=== PATIENT | male | born 1955 | race Caucasian/White ===

== ENCOUNTER 2016-07-05 09:33 | Day surgery (SDC) | payer MEDICARE ==
--- NOTE | 2016-05-09 09:01 | NUR ---
NN PATIENTS REPORTS THEY WERE EVACUATED FROM [facility] YESTERDAY DUE TO THE FIRE SITUATION AND WAS NOT ABLE TO MAKE THE PREOP APPOINTMENT WITH DR DAINA MELÉNDEZ, SHE STATED THEY CALLED DR TRAVIS PUENTES TO NOTIFY THEY WERE NOT ABLE TO MAKE IT, I THEN CALLED THE OFFICE TO NOTIFY JENNIFER, SHE STATED SHE THOUGHT IT WAS JUST FOR LABS, I SAID IF THE PATIENT HAS ANY CARDIAC OR OTHER MEDICAL ISSUES THE ANESTHESIA WILL WANT CLEARANCE.
--- NOTE | 2016-05-09 09:08 | NUR ---
NN NURSES NOTE, NO CHART AVAILABLE AT THIS TIME YET FROM DR RICO.
[2016-07-05] VITALS (7 sets, daily range): BP systolic 119–143; BP diastolic 58–65; PULSE 78–94; RESP 17–22; TEMP 97.2; O2SAT 97–99; Ht 157.5 cm; Wt 60.5 kg
[~2016-07-05] VITALS: Ht 157.5 cm; Wt 60.5 kg
[~2016-07-05 09:33] MED LIST: BACL10TA PO; BUDE0.5A6 AEROSOL; CETI-269 PO; CHOL100018 PO; DOCU60SY6 PO; GUAI200T5 PO; LIDOCAINE 1% (10mg/ml) 2ml SDV INJ ONE; LISI-621 PO; MULT-933 PO; NITR100C PO; RANI300C PO; SERT100T12 PO; SIMV20TA6 PO; TERA2CAP4 PO; TRAZ-170 PO
--- NOTE | 2016-07-05 10:23 | ANESPREOP ---
Anesthesia Record Date and Time DATE: 07/05/16 TIME: 10:18 Proposed Surgical Procedure CYSTOSCOPY SUPRAPUBIC TUBE PLACEMENT NPO since: 1999 Allergies: Coded Allergies: No Known Allergies (Unverified , 07/05/16) Ht/Wt/BMI Height: ' " Weight: kg BMI: kg/m2 Medications Baclofen (Baclofen) 10 Mg Tablet, 1 TAB PO DAILY, (Reported) Budesonide (Budesonide) 0.5 Mg/2 Ml Ampul.neb, 1 VIAL AEROSOL DAILY, (Reported) Cetirizine HCl (Cetirizine HCl) 10 Mg Tablet, 1 TAB PO DAILY, (Reported) Cholecalciferol (Vitamin D3) 1,000 Unit Tablet, 1 TAB PO DAILY, (Reported) Docusate Sodium (Docusate Sodium) 60 Mg/15 Ml Syrup, 15 ML PO for STOOL SOFTENING, (Reported) Guaifenesin (Guaifenesin) 200 Mg Tablet, 1 TAB PO DAILY, (Reported) Lisinopril (Lisinopril) 20 Mg Tablet, 20 MG PO DAILY, (Reported) Multivitamin (Multi-Day Vitamins) 1 Each Tablet, 1 TAB PO DAILY, (Reported) Nitrofurantoin Macrocrystal (Nitrofurantoin) 100 Mg Capsule, 1 CAP PO DAILY, ( Reported) Ranitidine HCl (Ranitidine HCl) 300 Mg Capsule, 1 CAP PO DAILY, (Reported) Sertraline (Sertraline) 100 Mg Tablet, 100 MG PO DAILY, (Reported) Simvastatin (Simvastatin) 20 Mg Tablet, 20 MG PO HS, (Reported) Take 1 tablet, by mouth, 1 time a day (at BEDTIME). Terazosin HCl (Terazosin HCl) 2 Mg Capsule, 1 CAP PO HS, (Reported) Trazodone HCl (Trazodone HCl) 50 Mg Tablet, 50 MG PO HS, (Reported) Take 1 tablet, by mouth, one time a day (at BEDTIME). 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.), Urinary Retention Smoking Status: Former smoker (quit 10 years ago) # of Packs per Day: 1 # of Years: 30 Use Chewing Tobacco?: No Second Hand Exposure: No Substance Use Type: does not use Alcohol Intake: none Past Surgical History Orthopedic Surgeries: Abdominal Surgeries: Genitourinary Surgeries: Cardiac Surgeries: Endocrine Surgeries: Reproductive Surgeries: Neurological Surgeries: Ear Surgeries: Nose Surgeries: Throat Surgeries: Other Surgeries: Anesthesia Adverse Reactions: FOUND none Family Hx of Anesthesia Advers: none Hx of Motion Sickness: No Physical Exam Respiratory: Bilat breath sounds equal, Lungs clear Cardiovascular: FOUND Regular rate, rhythm Airway Assessment Mallampati Score: II TMD: 3 Fingerbreadths Neck Extension: Fair Overall Assessment: No Airway Concerns ASA: 3 Plan Anesthesia Plan: TIVA, LMA, GETA, MAC Discussion Discussed risks/options/alternatives of anesthesia, include discussing possible post op ventilation, and questions answered. Patient consents. Nursing pain assessment noted. Attestation Statement Prior to the delivery of any anesthetic medication, I examined the patient, developed the plan, obtained the patient's consent and discussed the risk and benefits of the procedure with the patient/guardian. ANAMIKA MOSS CRNA July 05, 2016 10:22
[2016-07-05 10:25] LABS: BASOPHILS % (AUTO) 0.2 % (0-2); EOSINOPHILS # (AUTO) 0.2 T/MM3 (0-0.5); EOSINOPHILS % (AUTO) 1.4 % (0-4); HCT - HEMATOCRIT 43.2 % (41-53); HGB - HEMOGLOBIN 13.3 GM/DL (13.5-17.5); IMMATURE GRANULOCYTE # (AUTO) 0.02 T/MM3 (0.00-0.03); IMMATURE GRANULOCYTE % (AUTO) 0.1 % (0.0-0.5); LYMPHOCYTES # (AUTO) 1.5 T/MM3 (1-4.8); LYMPHOCYTES % (AUTO) 10.9 % (23-45); MEAN CORPUSCULAR HGB CONC(MCHC 30.8 GM/DL (31-37); MEAN CORPUSCULAR VOLUME 94.1 UM3 (80-100); MEAN PLATELET VOLUME 9.7 UM3 (9.4-12.4); MONOCYTES # (AUTO) 0.9 T/MM3 (0-0.8); MONOCYTES % (AUTO) 6.1 % (0-9.0); NEUTROPHILS #(AUTO)-ABSOLUTE 11.4 T/MM3 (1.8-7.7); NEUTROPHILS % (AUTO) 81.3 % (33-66); RED BLOOD COUNT 4.59 M/MM3 (4.50-5.90)
[2016-07-05] MEDS ORDERED: PROPOFOL 500mg 50 ML IV ONE (10:29)
[2016-07-05] MEDS ORDERED: KETAMINE 500mg/10ml INJECTION ONE (10:29)
[2016-07-05] MEDS ORDERED: MIDAZOLAM 2mg/2ml INJECTION ONE (10:29)
[2016-07-05] MEDS ORDERED: LIDOCAINE JELLY 2% 20ml UROJET MM ONE (10:29)
[2016-07-05 10:37] LABS: ANION GAP 12 MEQ/L (5-15); BUN/CREATININE RATIO 30 RATIO (6-26); CALCIUM 9.1 MG/DL (8.4-10.2); CHLORIDE 108 MEQ/L (98-107); CO2 - CARBON DIOXIDE 25 MEQ/L (22-30); CREATININE 0.4 MG/DL (0.8-1.5); GLOMERULAR FILTRATION RATE 218; GLUCOSE 113 MG/DL (75-110); POTASSIUM 4.1 MEQ/L (3.6-5); SODIUM 145 MEQ/L (134-144)
[2016-07-05] MEDS ORDERED: LR 1,000 ML IV ONE (11:01)
[2016-07-05] MEDS ORDERED: CEFAZOLIN 1 GRAM INJECTION IV ONE (11:30)
[2016-07-05] MEDS ORDERED: ONDANSETRON 4mg/2ml INJECTION IV PRN (11:45)
[2016-07-05] MEDS ORDERED: HYDROCODONE/APAP 5 mg/325 mg TABLET PO PRN (11:45)
[2016-07-05] MEDS ORDERED: MORPHINE SULFATE 4 MG SYRINGE IV PRN (11:45)
--- NOTE | 2016-07-05 12:28 | ANESPO ---
Post-Op Note Date 07/05/16 Time: 12:27 Status Pt Participated in Evaluation: Pt participated in person Vital Signs Date Time Temp Pulse Resp B/P Pulse Ox O2 Delivery O2 Flow Rate FiO2 07/05/16 12:16 97.2 94 22 143/63 99 Room Air Respiratory Function: Airway patent, Regular respirations Cardiovascular Function: Regular pulse Mental Status: Alert/oriented Pain Level Intensity: 5 Hydration: Taking po fluids Complications during Recovery None apparent Follow-Up Instructions Instructions Per Surgeon ANAMIKA MOSS CRNA July 05, 2016 12:28
--- NOTE | 2016-07-08 09:57 | OPNOTEF ---
DATE OF OPERATION 07/05/16 PREOPERATIVE DIAGNOSIS 1. Neurogenic bladder. 2. Urinary retention. POSTOPERATIVE DIAGNOSIS 1. Neurogenic bladder. 2. Urinary retention. PROCEDURE 1. Cystoscopy. 2. Suprapubic tube placement. SURGEON Filiberto Harris M.D. INDICATION FOR THE PROCEDURE Patient is a 61-year-old male who has a history of multiple sclerosis with neurogenic bladder and urinary retention. He has done in-and-out catheterization with the help of his for several years. He also wears a condom catheter for leakage. I have counseled them on a suprapubic tube and they would like to try this out. DESCRIPTION OF PROCEDURE He was taken back to the OR and placed under some sedation. His genitalia was prepped and draped and a time out was performed. A #22 Chinese scope was passed per the urethra. The urethra was normal; no strictures or obstructions. The prostate showed some moderate coaptive lateral lobes. The bladder was entered. Urine was drained and then I filled the bladder and looked throughout the entire bladder. There were no tumors, nothing suspicious for malignancy. Bladder had a decent capacity. I left the bladder distended. I removed the scope. I passed a [place] retractor. I was able to palpate the tip of the retractor above the pubic synthesis. Used a Bovie cautery to dissect down onto the tip of the Lowsley retractor. I then delivered that through. I secured a #24 Chinese two-way catheter and passed it into the bladder. I used the cystoscope to confirm it was in the bladder. I inflated the balloon and used a no silk drain stitch to secure the catheter at the skin site and a sterile dressing was applied. DISPOSITION I will see him back in five to six weeks in my office to change the tube for the first time. PAUL
== END 2016-07-05 13:49 | disposition home or self-care (01) ==
LOC: SCU 09:33
PROVIDERS: ATTEND Surgery
DX: N31.2 Flaccid neuropathic bladder, not elsewhere classified (principal); R33.9 Retention of urine, unspecified
CPT/HCPCS: 36415; 51102; 80048; 85025; A9270; J0690; J2250; J7120